=== PATIENT | female | born 1945 | race Caucasian/White ===

== ENCOUNTER 2018-08-04 21:09 | Emergency (ER) | payer MEDICARE, OTHER ==
[2018-08-05] MEDS: ACETAMINOPHEN 325 MG TAB PO (00:39)
[2018-08-05] MEDS: traMADol 50 MG TAB PO (00:39)
== END 2018-08-05 01:27 | disposition home or self-care (01) ==
LOC: FTE 21:09
DX: S52.612A Displaced fracture of left ulna styloid process, initial encounter for closed fracture (principal); S52.502A Unspecified fracture of the lower end of left radius, initial encounter for closed fracture; S69.91XA Unspecified injury of right wrist, hand and finger(s), initial encounter; W01.0XXA Fall on same level from slipping, tripping and stumbling without subsequent striking against object, initial encounter; Y92.9 Unspecified place or not applicable
CPT/HCPCS: 29125; 73110-50; 99284-25